=== PATIENT | female | born 1960 | race Caucasian/White ===

== ENCOUNTER 2024-08-19 14:38 | Emergency (ER) | payer MEDICAID, SELFPAY ==
[2024-08-19] VITALS (24 sets, daily range): BP systolic 100–174; BP diastolic 11–154; PULSE 57–92; RESP 12–25; TEMP 36.8; O2SAT 99–100
--- NOTE | 2024-08-19 14:30 | RT.EKG_ITS ---
APPROVED REPORT Exam: Resting ECG Reason for Exam: dialysis pt Patient Location: E HR:63 bpm ECG Measurements Heart Rate 63 AXIS IL 165 P 41 QRSd 79 QRS 20 QT 485 T 67 QTc 499 Conclusion Sinus rhythm, rate 63 Borderline QTc prolongation No STEMI Q waves lead III, V1/V2, T wave inversion aVL, no priors available for comparison
--- NOTE | 2024-08-19 14:51 | W.ED.GENAD ---
Discharge Plan Discharge Details Chief Complaint: Abd Prob Primary Care Provider: Wilber Miles ED Provider: Lindsey Morris Home Meds and New Rx's Prescriptions: No Action lactulose 10 gram/15 mL solution 15 ml PO DAILY ondansetron 4 mg tablet,disintegrating 4 mg PO DAILY Rx Instructions: Give 1 tab prior to dialysis on Thu/ Thu/ Thu mupirocin 2 % ointment 1 applic topical BID fluoxetine 20 mg capsule 80 mg PO DAILY metoprolol succinate 25 mg tablet extended release 24 hr 25 mg PO DAILY insulin aspart U-100 [Novolog U-100 Insulin aspart] 100 unit/mL solution 1 sliding scale dose subcut TID midodrine 5 mg tablet 5 mg PO ONCE Rx Instructions: administer 15-30 minutes before start of dialysis on Thu/ Thu/ Thu cyanocobalamin (vitamin B-12) [Vitamin B-12] 1,000 mcg tablet 1,000 mcg PO DAILY buspirone 5 mg tablet 5 mg PO BID pantoprazole [Protonix] 40 mg tablet,delayed release (DR/EC) 40 mg PO DAILY aspirin 81 mg tablet,chewable 81 mg PO DAILY Eliquis 5 mg tablet 5 mg PO BID polyethylene glycol 3350 [Miralax] 17 gram/dose powder 17 g PO BID acetaminophen 500 mg capsule 1,000 mg PO TID sennosides-docusate sodium [Senna Plus] 8.6-50 mg tablet 1 tab-cap PO BID trazodone 50 mg tablet 25 mg PO DAILY atorvastatin [Lipitor] 80 mg tablet 80 mg PO QHS sevelamer carbonate 800 mg tablet 1,600 mg PO TID Rx Instructions: must administer with a meal/food melatonin 3 mg tablet 3 mg PO QHS HPI General Mode of arrival: EMS. Date/Time Provider Initiated Documentation: 08/19/24 14:40. Limitations to Documentation: no limitations. Information obtained by: patient, EMS and old records reviewed. HPI Narrative: This is a 63-year-old female patient brought in by EMS from her care facility, with a report of nausea, vomiting, and abdominal pain. She reports that she has felt unwell all week, skip to Thursday and Thursday dialysis due to her feeling poorly. She did get normal dialysis on Thursday. She states that she is currently experiencing 7 out of 10 pain, has been able to maintain some oral intake but has a decreased appetite. History of cholecystectomy. She also has a history of endometrial cancer and noted that her vaginal bleeding has worsened over the last 2 weeks. She reports that she does make a small amount of urine, has not experienced any decreased urine output or dysuria. Took Tylenol and Zofran prior to arrival to good effect on her symptoms. Related Data Home Medications ?Medication ?Instructions ?Recorded ?Confirmed acetaminophen 500 mg capsule 1,000 mg PO TID 08/19/24 08/19/24 apixaban 5 mg tablet (Eliquis) 5 mg PO BID 08/19/24 08/19/24 aspirin 81 mg chewable tablet 81 mg PO DAILY 08/19/24 08/19/24 atorvastatin 80 mg tablet (Lipitor) 80 mg PO QHS 08/19/24 08/19/24 buspirone 5 mg tablet 5 mg PO BID 08/19/24 08/19/24 cyanocobalamin (vitamin B-12) 1,000 mcg PO DAILY 08/19/24 08/19/24 1,000 mcg tablet (Vitamin B-12) fluoxetine 20 mg capsule 80 mg PO DAILY 08/19/24 08/19/24 insulin aspart U-100 100 unit/mL 1 sliding scale dose subcut TID 08/19/24 08/19/24 subcutaneous solution (Novolog U-100 Insulin aspart) lactulose 10 gram/15 mL oral 15 ml PO DAILY 08/19/24 08/19/24 solution melatonin 3 mg tablet 3 mg PO QHS 08/19/24 08/19/24 metoprolol succinate 25 mg 25 mg PO DAILY 08/19/24 08/19/24 tablet,extended release 24 hr midodrine 5 mg tablet 5 mg PO ONCE 08/19/24 08/19/24 mupirocin 2 % topical ointment 1 applic topical BID 08/19/24 08/19/24 ondansetron 4 mg disintegrating 4 mg PO DAILY 08/19/24 08/19/24 tablet pantoprazole 40 mg tablet,delayed 40 mg PO DAILY 08/19/24 08/19/24 release (Protonix) polyethylene glycol 3350 17 17 g PO BID 08/19/24 08/19/24 gram/dose oral powder (Miralax) sennosides 8.6 mg-docusate sodium 1 tab-cap PO BID 08/19/24 08/19/24 50 mg tablet (Senna Plus) sevelamer carbonate 800 mg tablet 1,600 mg PO TID 08/19/24 08/19/24 trazodone 50 mg tablet 25 mg PO DAILY 08/19/24 08/19/24 Allergies Allergy/AdvReac Type Severity Reaction Status Date / Time cefazolin Allergy Unknown Unknown Verified 08/19/24 14:59 ceftriaxone Allergy Unknown Unknown Verified 08/19/24 14:59 codeine Allergy Unknown Unknown Verified 08/19/24 14:59 Fish Containing Products Allergy Unknown Unknown Verified 08/19/24 14:59 gabapentin Allergy Unknown Unknown Verified 08/19/24 14:59 piperacillin (From Zosyn) Allergy Unknown Unknown Verified 08/19/24 14:59 tazobactam (From Zosyn) Allergy Unknown Unknown Verified 08/19/24 14:59 General Stated Complaint: Abd Prob SELENA: 3 Exam Narrative Exam Narrative: Gen: Awake and alert, in no apparent distress HEENT: Non-icteric sclera Neck: Supple Lungs: No apparent respiratory distress, normal respiratory effort, lung sounds clear and equal bilaterally CV: Appears well perfused, heart with regular rate and rhythm, strong distal pulses Abdomen: Non-distended, soft, tender to palpation throughout the abdomen without rigidity, rebound, or guarding MSK: Status post left AKA, other extremities atraumatic Skin: Visualized skin without rashes, cyanosis. Neuro: No obvious focal deficits or facial asymmetry. Speaks in full, clear sentences. Psych: Appropriate for situation. Course Vital Signs Vital signs: Vital Signs Temperature 36.8 C 08/19/24 14:44 Pulse 65 08/19/24 14:44 Respiratory Rate 14 08/19/24 14:44 Blood Pressure 104/84 08/19/24 14:44 Pulse Oximetry 99 08/19/24 14:44 Temperature 36.8 C 08/19/24 14:44 Temperature Source Oral 08/19/24 14:44 Pulse 65 08/19/24 14:44 Respiratory Rate 14 08/19/24 14:44 Blood Pressure 104/84 08/19/24 14:44 Blood Pressure Position Sitting 08/19/24 14:44 Pulse Oximetry 99 08/19/24 14:44 Oxygen Delivery Method Room Air 08/19/24 14:44 Oxygen Flow Rate 0 08/19/24 14:44 Pain Level 7 08/19/24 14:44 Procedure EJ/Peripheral IV/Phlebotomy Date of Procedure: 08/19/24 Time of Procedure: 16:36 Indication: Nursing/tech could not get IV and Difficult IV access Skin Cleansed in Sterile Fashion: Yes Laterality: Left Insertion Site: Basilic Size & Type: 20 ga. Number ofAttempts(See previous attempts in note section): 1 Ultrasound: Used/Image Saved Estimated Blood Loss: minimal Reason for Blood Draw by Provider: RN/lab unable Obtained Bloods via: peripheral vein stick Procedure Tolerated: Other (After labs were drawn, when preparing to dress the line, we will noted that the line stopped drawing, and would not flush, concerning for extravasation/blown vein. The catheter was removed and the site dressed.) Procedure Outcome: Unsuccessful (Successfully obtained laboratory studies, unsuccessful peripheral access) Medical Decision Making This is a 63-year-old female patient presenting for evaluation of 5 days of nausea, decreased stool output/constipation, and abdominal pain. My differential includes, but is not limited to, gastritis/PUD, gastroenteritis, pancreatitis, cholecystitis and gallbladder pathology, hepatitis, appendicitis, diverticulitis, small bowel obstruction. Considered urinary pathology including UTI, nephrolithiasis. Considered mesenteric ischemia, aortic pathology, though this is less concerning based on the patient's history and physical exam. Considered sequelae of known endometrial cancer including anemia, uterine abnormalities. Considered metabolic electrolyte derangements, including hyperkalemia in the setting of her missed dialysis. Considered fluid overload. We obtained and I reviewed an EKG, which shows a sinus rhythm without peaked T waves, excessive bradycardia or QRS prolongation. Will obtain laboratory studies to include CBC, CMP, magnesium, lactate, troponin, BNP, and lipase. I will obtain a Noncon CT abdomen. -I reviewed the patient's CT, which shows evidence of constipation but no bowel obstruction or other acute abnormality to explain the patient's symptoms. I reviewed her laboratory studies, no leukocytosis, anemia noted to 8.6, no associated thrombocytopenia. Lactate is low at 1.4, chemistry panel is most notable for potassium of 5.9, with no hemolysis. BUN and creatinine ratio elevated consistent with her end-stage renal disease, though unfortunately no prior labs are available for comparison. She has no evidence of liver dysfunction, troponin is low and without interval increase on 1 hour delta recheck. Her BNP is quite elevated to 19,000, lipase is low. Unfortunately, this patient had significantly difficult IV access, with multiple failed attempts. She had 2 ultrasound IV lines placed, both of which unfortunately blew after laboratory studies were drawn. I do feel that this patient warrants treatment for her hyperkalemia, though I am reassured by the lack of EKG changes. She likely has some baseline hyperkalemia given her end-stage renal disease. I will provide her with oral medications to include Lokelma and Lasix. She does make a small amount of urine. Unfortunately [facility] reports that they are at capacity, and I feel that this patient warrants transfer as she will require dialysis tomorrow. I reached out to [facility], Dr. Powell has graciously accepted this patient for admission to [facility]. We had a shared decision-making conversation regarding her plan of treatment, she does not feel that this patient warrants central access at this time, and feels that her hyperkalemia does not need to be managed more aggressively than we have already done. The patient will be transferred at the market master level for cardiac monitoring, remained hemodynamically appropriate while under my care, left our facility without incident. Lindsey Morris MD Critical Care Time Critical Care Time Critical Care Time: Yes Total Critical Care Time: 40 Attestation: Upon my evaluation, this patient had a high probability of imminent or life-threatening deterioration due to hyperkalemia, which required my direct attention, intervention, and personal management. I have personally provided 40 minutes of critical care time exclusive of time spent on separately billable procedures. Time includes review of laboratory data, radiology results, discussion with consultants, and monitoring for potential decompensation. Interventions were performed as documented above. iLndsey Morris MD [facility] Social History Smoking risk assessment performed?: No
[2024-08-19 17:08] LABS: Lactate 1.4 mmol/L (<or=2.0)
[2024-08-19 17:10] LABS: Abs Immature Grans 0.03 10^3/uL (0.0-0.06); Absolute Eosinophil Count 0.14 10^3/uL (0.0-0.7); Absolute Lymphocyte Count 0.81 10^3/uL (1.2-3.4); Absolute Monocyte Count 0.54 10^3/uL (0.1-0.8); Absolute Neutrophil Count 6.48 10^3/uL (1.2-6.7); Eosinophils % 1.8 %; HCT 30.6 % (36.0-46.0); HGB 8.6 g/dL (11.2-15.7); Immature Grans % 0.4 %; Lymphocytes % 10.1 %; MCH 27.7 pg (27.0-33.0); MCHC 28.1 % (32.0-36.0); MCV 99 fL (80-95); MPV 11.3 fL (8.0-11.0); Monocytes % 6.8 %; Neutrophils % 80.9 %; Platelet Count 139 10^3/uL (130-400); RDW 15.1 % (11.7-14.6); RDW-SD 54.1 fL
--- NOTE | 2024-08-19 17:27 | DI.CT_ITS ---
Exam(s) CT ABDOMEN PELVIS WO EXAM: CT ABDOMEN PELVIS WO CLINICAL HISTORY: nausea, constipation, eval bowel obstruction.. TECHNIQUE: Imaging Protocol: Axial computed tomography images with coronal and sagittal reformatted images were created and reviewed. COMPARISON: No exams were available for comparison FINDINGS: ABDOMEN: Lung Bases: Coronary artery calcifications are present. Liver: Normal density. No measurable mass. Gallbladder and biliary tract: The gallbladder is not visualized. There is no biliary ductal dilatation. Pancreas: Normal density, no abnormal calcifications or inflammatory process. Spleen: Normal. Kidneys: Normal size, contour and axis.No radiodense stones or obstructive uropathy. No masses seen. Adrenal glands: No mass is seen. Lymph nodes: Within normal limits. Abdominal Aorta: Abdominal portion non-dilated. There is marked atherosclerotic calcification of the abdominal vasculature including the abdominal aorta. PELVIS: Bladder:Symmetric distention, no gross wall thickening. Bowel: No obstruction or bowel wall thickening. There is stool throughout the colon suggesting constipation. There is no evidence of appendicitis. Peritoneal cavity: No ascites, collection or mesenteric inflammatory response. No free air. Reproductive organs: There is an IUD within the uterus. Bones: Within normal limits. Soft Tissues: There is fatty atrophy seen in the pelvic muscles, particularly the gluteal muscles. IMPRESSION: 1. No acute abdominal or pelvic process. 2. Constipation. 3. No evidence of bowel obstruction. 4. Extensive atherosclerotic disease. RADIATION DOSE DELIVERED: 1,419.5mGy.cm Total DLP DATA REPOSITORY: All CT scans at this facility are submitted to the National Radiology Data Registry (NRDR) Dose Index Registry (DIR) with the [employer] ([employer]). RADIATION OPTIMIZATION: All CT scans at this facility use at least one of these dose optimization techniques: automated exposure control; mA and/or kV adjustment per patient size (includes targeted exams where dose is matched to clinical indication); or iterative reconstruction.
[2024-08-19 17:36] LABS: Troponin I 9 ng/L (<or=51)
[2024-08-19 17:51] LABS: ALT 22 U/L (14-59); AST 21 U/L (15-37); Albumin 2.3 g/dL (3.4-5.0); Alkaline Phosphatase 146 U/L (46-116); Anion Gap 5.4 mmol/L (3-11); BUN 41 mg/dL (7-18); Bilirubin, Total 0.2 mg/dL (0.2-1.0); CO2 31.6 mmol/L (21.0-32.0); Calcium 8.5 mg/dL (8.5-10.1); Chloride 104 mmol/L (98-107); Estimated GFR 8.31 (mL/min/1.73m2); Glucose 192 mg/dL (74-106); Lipase 28 U/L (<78); Magnesium 2.2 mg/dL (1.8-2.4); NT-proBNP 19451 pg/mL (<300); Potassium 5.9 mmol/L (3.5-5.1); Sodium 141 mmol/L (136-145); Total Protein 5.9 g/dL (6.4-8.2)
[2024-08-19 17:52] LABS: CREATININE 5.4 mg/dL (0.55-1.02)
[2024-08-19] MEDS: Sodium Zirconium Cyclosilicate 10 GM PKT PO (18:51)
[2024-08-19] MEDS: Furosemide 80 MG TAB PO (19:06)
--- NOTE | 2024-08-20 02:07 | NUR.NOTE ---
Patient had an uneventful transport to [facility]. Patient vitals remained stable, and patient was interactive throughout the transport
== END 2024-08-19 22:25 | disposition short-term general hospital (02) ==
LOC: ER 19:58
PROVIDERS: Emergency Provider Emergency Medicine; PCP Internal Medicine
DX: R11.2 Nausea with vomiting, unspecified (principal); N93.9 Abnormal uterine and vaginal bleeding, unspecified; E87.5 Hyperkalemia; Z79.82 Long term (current) use of aspirin; Z79.01 Long term (current) use of anticoagulants; Z97.5 Presence of (intrauterine) contraceptive device; E11.22 Type 2 diabetes mellitus with diabetic chronic kidney disease; I12.0 Hypertensive chronic kidney disease with stage 5 chronic kidney disease or end stage renal disease; N18.6 End stage renal disease; Z99.2 Dependence on renal dialysis
CPT/HCPCS: 36569; 76942; 80053; 83690; 86850; 86900; 86901; 93005; 99284; 74176; 83605; 83735; 83880; 84132; 84484; 85025; 85610; 93010

== ENCOUNTER 2024-08-31 02:55 | Outpatient (CLI) | payer MEDICAID, SELFPAY ==
--- NOTE | 2024-08-31 07:00 | DI.US_ITS ---
Exam(s) US PELVIS TRANSVAGINAL EXAM: US PELVIS TRANSVAGINAL CLINICAL HISTORY: check IUD and stripe,[id number],encounter for routine check of iud TECHNIQUE: Transabdominal and transvaginal imaging was performed using standard protocol. COMPARISON: CT CT ABDOMEN PELVIS WO from 08/19/2024 FINDINGS: The transabdominal portion of the exam is limited by suboptimal bladder distention. The exam is limited by patient body habitus. Transvaginal images are also limited by stool/gas in the rectum. UTERUS: Anteverted. 9.4 x 3.6 x 5.6 cm Endometrium: 10 mm IUD appears appropriately positioned within the endometrium. Myometrium: Unremarkable. Cervix: Unremarkable. The ovaries were not able to be visualized. CUL-DE-SAC: Free fluid: None. IMPRESSION: 1. The IUD appears to be in appropriate position within the endometrial cavity. The endometrium appears thickened at 10 millimeters. 2. The ovaries were not visualized. DATA REPOSITORY:
== END 2024-08-31 03:15 ==
LOC: DI 02:56
PROVIDERS: PCP Internal Medicine; Visit Provider Obstetrics & Gynecology
DX: Z30.431 Encounter for routine checking of intrauterine contraceptive device (principal)
CPT/HCPCS: 76830; 76856

== ENCOUNTER 2024-08-31 17:19 | Emergency (ER) | payer MEDICAID, SELFPAY ==
[2024-08-31] VITALS (60 sets, daily range): BP systolic 37–144; BP diastolic 10–130; PULSE 66–76; RESP 9–25; TEMP 36.9–37.3; O2SAT 77–100
--- NOTE | 2024-08-31 17:22 | W.ED.GENAD ---
Discharge Plan Disposition Patient Disposition: Transfer-Acute Inpatient Care Specific Acute Inpt Facility: [facility] Condition: Serious Discharge Details Clinical Impression: Hypotension, Shock, Vaginal bleeding, GI bleeding Primary Care Provider: Wilber Miles ED Provider: Thomas Santiago Home Meds and New Rx's Prescriptions: No Action lactulose 10 gram/15 mL solution 15 ml PO DAILY ondansetron 4 mg tablet,disintegrating 4 mg PO DAILY Rx Instructions: Give 1 tab prior to dialysis on Thu/ Thu/ Thu mupirocin 2 % ointment 1 applic topical BID fluoxetine 20 mg capsule 80 mg PO DAILY metoprolol succinate 25 mg tablet extended release 24 hr 25 mg PO DAILY insulin aspart U-100 [Novolog U-100 Insulin aspart] 100 unit/mL solution 1 sliding scale dose subcut TID midodrine 5 mg tablet 5 mg PO ONCE Rx Instructions: administer 15-30 minutes before start of dialysis on Thu/ Thu/ Thu cyanocobalamin (vitamin B-12) [Vitamin B-12] 1,000 mcg tablet 1,000 mcg PO DAILY buspirone 5 mg tablet 5 mg PO BID pantoprazole [Protonix] 40 mg tablet,delayed release (DR/EC) 40 mg PO DAILY aspirin 81 mg tablet,chewable 81 mg PO DAILY Eliquis 5 mg tablet 5 mg PO BID polyethylene glycol 3350 [Miralax] 17 gram/dose powder 17 g PO BID acetaminophen 500 mg capsule 1,000 mg PO TID sennosides-docusate sodium [Senna Plus] 8.6-50 mg tablet 1 tab-cap PO BID trazodone 50 mg tablet 25 mg PO DAILY atorvastatin [Lipitor] 80 mg tablet 80 mg PO QHS sevelamer carbonate 800 mg tablet 1,600 mg PO TID Rx Instructions: must administer with a meal/food melatonin 3 mg tablet 3 mg PO QHS HPI General Date/Time Provider Initiated Documentation: 08/31/24 17:22. HPI Narrative: 63 year-old female presents to ED today by EMS with a chief complaint of low hemoglobin reading while at dialysis today, 6.2, with onset insidiously- her HgB was 8.6 on 08/19/24, patient has remote history of GI bleed and is on Eliquis. Gets dialysis through a tunnel catheter. Quality described as feels weak, no radiation to chest pain, endorses lower abdominal pain diffusely, history of t2DM with L BKA amputation, does make urine still but usually not on days she gets dialysis. Severity is described as moderate for weakness. Palliating factors include nothing specific. Provoking factors include nothing specific. Events leading up to the incident/Associated Symptoms: Patient endorse some nausea, and questions if it looked like coffee grounds yesterday but doesn't look at her stools, endorses some uterine bleeding as well from her known mass. Patient is at the [facility] in [place]. Patient is anticoagulated on Eliquis. Related Data Home Medications ?Medication ?Instructions ?Recorded ?Confirmed acetaminophen 500 mg capsule 1,000 mg PO TID 08/19/24 08/31/24 apixaban 5 mg tablet (Eliquis) 5 mg PO BID 08/19/24 08/31/24 aspirin 81 mg chewable tablet 81 mg PO DAILY 08/19/24 08/31/24 atorvastatin 80 mg tablet (Lipitor) 80 mg PO QHS 08/19/24 08/31/24 buspirone 5 mg tablet 5 mg PO BID 08/19/24 08/31/24 cyanocobalamin (vitamin B-12) 1,000 mcg PO DAILY 08/19/24 08/31/24 1,000 mcg tablet (Vitamin B-12) fluoxetine 20 mg capsule 80 mg PO DAILY 08/19/24 08/31/24 insulin aspart U-100 100 unit/mL 1 sliding scale dose subcut TID 08/19/24 08/31/24 subcutaneous solution (Novolog U-100 Insulin aspart) lactulose 10 gram/15 mL oral 15 ml PO DAILY 08/19/24 08/31/24 solution melatonin 3 mg tablet 3 mg PO QHS 08/19/24 08/31/24 metoprolol succinate 25 mg 25 mg PO DAILY 08/19/24 08/31/24 tablet,extended release 24 hr midodrine 5 mg tablet 5 mg PO ONCE 08/19/24 08/31/24 mupirocin 2 % topical ointment 1 applic topical BID 08/19/24 08/31/24 ondansetron 4 mg disintegrating 4 mg PO DAILY 08/19/24 08/31/24 tablet pantoprazole 40 mg tablet,delayed 40 mg PO DAILY 08/19/24 08/31/24 release (Protonix) polyethylene glycol 3350 17 17 g PO BID 08/19/24 08/31/24 gram/dose oral powder (Miralax) sennosides 8.6 mg-docusate sodium 1 tab-cap PO BID 08/19/24 08/31/24 50 mg tablet (Senna Plus) sevelamer carbonate 800 mg tablet 1,600 mg PO TID 08/19/24 08/31/24 trazodone 50 mg tablet 25 mg PO DAILY 08/19/24 08/31/24 Allergies Allergy/AdvReac Type Severity Reaction Status Date / Time cefazolin Allergy Unknown Unknown Verified 08/19/24 14:59 ceftriaxone Allergy Unknown Unknown Verified 08/19/24 14:59 codeine Allergy Unknown Unknown Verified 08/19/24 14:59 Fish Containing Products Allergy Unknown Unknown Verified 08/19/24 14:59 gabapentin Allergy Unknown Unknown Verified 08/19/24 14:59 piperacillin (From Zosyn) Allergy Unknown Unknown Verified 08/19/24 14:59 tazobactam (From Zosyn) Allergy Unknown Unknown Verified 08/19/24 14:59 General Stated Complaint: GenMedical SELENA: 3 Review of Systems All systems reviewed & are unremarkable except as noted in HPI and below Exam Narrative Exam Narrative: GENERAL APPEARANCE: Obesity, toxic, awake and alert, atraumatic, significant acute distress, nodding off during initial questioning SKIN: Warm, pale, dry, intact, without rashes/lesions/ulcerations. HEAD: Normocephalic, atraumatic, normal hair distribution for gender/age. EYES: Normal conjunctiva, no exudates on lids/lashes. ENT: Nares patent, no circumoral cyanosis, no facial swelling NECK: Supple, trachea midline, painless cervical ROM. LUNGS/CHEST: Lungs CTA bilaterally- no rhonchi/rales/wheezes diffusely, non-labored respirations, normal A/P diameter, symmetrical expansion, no chest wall deformity HEART (CV/PV): Regular rate and rhythm without murmur, no peripheral edema, no JVD. ABDOMEN: Soft, non-distended, no guarding, diffuse lower abdominal tenderness without rebound tenderness. Pelvic/NEVAEH: clots present at labia/vaginal opening, no phoebe blood, stool present without blood MSK: L LE BKA, moving all other extremities without weakness, no cyanosis, spine midline without tenderness, normal curvature. NEURO: Mental Status AAOx4 - alert to person, place, time, events No facial droop, no forehead involvement. Motor: No focal weakness Sensory: sensation intact to light touch globally. Gait NT. PSYCH: euthymic, cooperative, pleasant, appropriate speech Course Vital Signs Vital signs: Vital Signs Temperature 36.9 C 08/31/24 17:15 Pulse 71 08/31/24 17:15 Respiratory Rate 17 08/31/24 17:15 Pulse Oximetry 99 08/31/24 17:15 Temperature 36.9 C 08/31/24 17:15 Temperature Source Oral 08/31/24 17:15 Pulse 71 08/31/24 17:15 Respiratory Rate 17 08/31/24 17:15 Blood Pressure Position Supine 08/31/24 17:15 Pulse Oximetry 99 08/31/24 17:15 Oxygen Delivery Method Room Air 08/31/24 17:15 Oxygen Flow Rate 0 08/31/24 17:15 Medical Decision Making This dictation utilizes [id number] dictation software and may contain unedited grammatical errors. 63 year-old female presents to ED today by EMS with a chief complaint of low hemoglobin reading while at dialysis today, 6.2, with onset insidiously- her HgB was 8.6 on 08/19/24, patient has remote history of GI bleed and is on Eliquis. Gets dialysis through a tunnel catheter. Quality described as feels weak, no radiation to chest pain, endorses lower abdominal pain diffusely, history of t2DM with L BKA amputation, does make urine still but usually not on days she gets dialysis. Severity is described as moderate for weakness. Palliating factors include nothing specific. Provoking factors include nothing specific. Events leading up to the incident/Associated Symptoms: Patient endorse some nausea, and questions if it looked like coffee grounds yesterday but doesn't look at her stools, but also having some uterine bleeding as well. Patient is at the [facility] in [place]. Patients' medical history: Morbid obesity, T2DM, end-stage renal failure, atrial fibrillation, hypertension, endocrine cancer with vaginal bleeding. Family and social history: Noncontributory. Pertinent exam findings / vital signs include diffuse lower abdominal tenderness, some moderate amount of blood in the depends from the vagina which has been chronic, stool without blood present rectum, hypotensive, diffuse lower abdominal tenderness. Differential / pathologies of concern include vaginal bleeding, GI bleeding, hypotension, renal failure. Diagnostic studies of: - CBC, CMP, PT/INR, PTT, lactate, magnesium, troponin, BNP, lipase, type and screen. - CBC shows hemoglobin of 7.0, elevated white blood cells at 12.44, no left shift - PT/INR within normal limits - PTT elevated at 36 point - Magnesium within normal limits - AST/ALT low, alk phos 157 - Troponin negative - BNP 25,000 likely renal source - Lipase negative - Blood type A+ with antibody screen negative Was awaiting peripheral IV for imaging, but with multiple infiltrations it was not performed prior to patients hypotension and subsequent transfer, reviewed imaging from 08/19 Interventions of: -multiple peripheral IV attempts have infiltrated, this patient has had multiple attempts in the past with transfer without IV access to tertiary care facility where she reportedly needed access via anesthesia consult - consulting with Nephrology about use of her tunnel cath, calling anesthesia on-call. Patient will need transfusion, and transfer as we do not have dialysis here- CT considered but no bright red blood per rectum, low-yield study. -Consulted with [facility] Nephrology Dr. Eason @ 1943 - states using tunnel cath isn't ideal but with patients difficult history of access- OK to use for resuscitation with good sterile technique and line dressing, reinstill with heparin etc. Our ENVIRONMENTAL LAWYER was called in and there was no location reasonable for midline on ultrasound. - [facility] states overcapacity today, [facility] paged, patient did have some hypotension during this time, paged and spoke to MICU attending at 2047- recommends blood in tunnel cath, recommends ED to ED transfer, Lucille Soto - Spoke to Dr. Ayala in [facility] ED, accepts for transfer, considering flighting her over there- patient is 268 lbs., [ ] ED Course/Assessment/Plan: 63-year-old female comes in by EMS from the [facility], had dialysis today with outpatient labs drawn with a hemoglobin of 6.2, hypotensive on arrival 81/53 but the patient is obese and the cuff was forearm, manual reading 92/68 -some transient hypotension below this the patient has had maintained good color and alertness without requiring any oxygenation or other support, patient has history of extremely difficult stick, we had to peripheral IVs infiltrate, ENVIRONMENTAL LAWYER was called in, could not place midline there was nothing superficial enough to place a line. I did speak to [facility] nephrology on the phone and they did give permission for resuscitative use of the patient's tunnel cath we started 1 unit of packed red blood cells by sterile technique in the tunnel cath, pending transfer. Patient is having chronic bleeding from her known uterine mass, question some GI bleeding too without suspicion for acute hemorrhage. Disposition of Hypotension, Shock, Vaginal Bleeding, GI Bleeding. Patient verbalized understanding of the plan and return to ED criteria and engaged in shared decision making. Medical Records Medical records reviewed: Yes I reviewed the patient's medical records. Lab Data Lab results reviewed: Yes I reviewed the patient's lab results. Labs: Laboratory Tests Range/Units 08/31/24 08/31/24 08/31/24 18:21 18:24 19:52 WBC (4.4-10.8) 10^3/uL 12.44 H RBC (3.93-5.22) 10^6/uL 2.48 L Hgb (11.2-15.7) g/dL 7.0 L* Hct (36.0-46.0) % 24.5 L MCV (80-95) fL 99 H MCH (27.0-33.0) pg 28.2 MCHC (32.0-36.0) % 28.6 L RDW (11.7-14.6) % 16.4 H Plt Count (130-400) 10^3/uL 188 MPV (8.0-11.0) fL 10.4 Immature Gran % % 0.4 Neutrophils % % 85.8 Lymphocytes % % 5.8 Monocytes % % 7.2 Eosinophils % % 0.6 Basophils % % 0.2 Nucleated RBC % (0.0-0.3) % 0.0 Absolute Neutrophils (1.2-6.7) 10^3/uL 10.67 H Absolute Lymphocytes (1.2-3.4) 10^3/uL 0.72 L Absolute Monocytes (0.1-0.8) 10^3/uL 0.90 H Absolute Eosinophils (0.0-0.7) 10^3/uL 0.07 Absolute Basophils (0.0-0.2) 10^3/uL 0.02 PT (9.1-11.1) sec 10.4 INR (0.9-1.1) 1.0 APTT (20.6-30.2) sec 36.0 H VBG Lactate (<or=2.0) mmol/L 1.6 Sodium (136-145) mmol/L 142 Potassium (3.5-5.1) mmol/L 4.2 Chloride (98-107) mmol/L 100 Carbon Dioxide (21.0-32.0) mmol/L 34.3 H Anion Gap (3-11) mmol/L 7.7 BUN (7-18) mg/dL 11 Creatinine (0.55-1.02) mg/dL 1.8 H Est GFR (CKD-EPI 2020) (mL/min/1.73m2) 31.07 Glucose (74-106) mg/dL 110 H Calcium (8.5-10.1) mg/dL 8.9 Magnesium (1.8-2.4) mg/dL 1.8 Total Bilirubin (0.2-1.0) mg/dL 0.4 AST (15-37) U/L 11 L ALT (14-59) U/L 13 L Alkaline Phosphatase (46-116) U/L 157 H Troponin I (<or=51) ng/L 9 NT-Pro-B Natriuret Pep (<300) pg/mL 69332 H Total Protein (6.4-8.2) g/dL 7.1 Albumin (3.4-5.0) g/dL 2.4 L Lipase (<78) U/L 23 ABO/Rh A Positive Antibody Screen NEGATIVE Crossmatch See Detail Critical Care Time Critical Care Time Critical Care Time: Yes Total Critical Care Time: 60 Attestation: Upon my evaluation, this patient had a high probability of imminent or life-threatening deterioration due to hypotension/shock, which required my direct attention, intervention, and personal management. I have personally provided [ ] minutes of critical care time exclusive of time spent on separately billable procedures. Time includes review of laboratory data, radiology results, discussion with consultants, and monitoring for potential decompensation. Interventions were performed as documented above, including monitoring of critical vital signs, ordering critical medications from bedside, and re-assessing effectiveness, repeating critical exam findings, and reviewing patients' chart. PFSH All Active Problems (Updated 08/31/24 @ 22:01 by GAVIN Hall) GI bleeding (Chronic) Vaginal bleeding (Acute) Shock (Acute) Hypotension (Acute) Hx of left BKA (Acute) Class III morbid obesity with body mass index (BMI) of 40.0 to 49.9 (Acute) Type 2 diabetes mellitus (Acute) End stage renal failure on dialysis (Acute) Metabolic encephalopathy (Acute) Bacteremia (Acute) Depression (Chronic) A-fib (Chronic) Hypertension (Chronic) Endocrine cancer (Acute) with an IUD IUD check up (Acute) Social History Smoking risk assessment performed?: No
[2024-08-31] MEDS: Normal Saline 500 ML IV (18:37)
[2024-08-31 18:56] LABS: ALT 13 U/L (14-59); AST 11 U/L (15-37); Albumin 2.4 g/dL (3.4-5.0); Alkaline Phosphatase 157 U/L (46-116); Anion Gap 7.7 mmol/L (3-11); BUN 11 mg/dL (7-18); Bilirubin, Total 0.4 mg/dL (0.2-1.0); CO2 34.3 mmol/L (21.0-32.0); Calcium 8.9 mg/dL (8.5-10.1); Chloride 100 mmol/L (98-107); Estimated GFR 31.07 (mL/min/1.73m2); Glucose 110 mg/dL (74-106); Lipase 23 U/L (<78); Magnesium 1.8 mg/dL (1.8-2.4); NT-proBNP 25425 pg/mL (<300); Potassium 4.2 mmol/L (3.5-5.1); Sodium 142 mmol/L (136-145); Total Protein 7.1 g/dL (6.4-8.2); Troponin I 9 ng/L (<or=51)
[2024-08-31 18:57] LABS: INR 1.0 (0.9-1.1); PTT Activated 36.0 sec (20.6-30.2); Prothrombin Time 10.4 sec (9.1-11.1)
[2024-08-31 19:55] LABS: Abs Immature Grans 0.05 10^3/uL (0.0-0.06); HCT 24.5 % (36.0-46.0); Immature Grans % 0.4 %; MCH 28.2 pg (27.0-33.0); MCHC 28.6 % (32.0-36.0); MCV 99 fL (80-95); MPV 10.4 fL (8.0-11.0); Platelet Count 188 10^3/uL (130-400); RBC 2.48 10^6/uL (3.93-5.22); RDW 16.4 % (11.7-14.6); RDW-SD 59.5 fL; WBC 12.44 10^3/uL (4.4-10.8)
[2024-08-31 20:01] LABS: HGB 7.0 g/dL (11.2-15.7)
[2024-08-31 22:32] LABS: COVID-19 PCR Negative (Negative); RSV PCR Negative (Negative)
--- NOTE | 2024-09-01 14:07 | NUR.NOTE ---
Accessed Pt chart to cancel the CT that was ordered by the Provider.
== END 2024-08-31 22:39 | disposition short-term general hospital (02) ==
PROVIDERS: Emergency Provider Physician Assistant; PCP Internal Medicine
DX: K92.2 Gastrointestinal hemorrhage, unspecified (principal); N93.9 Abnormal uterine and vaginal bleeding, unspecified; N85.8 Other specified noninflammatory disorders of uterus; I95.9 Hypotension, unspecified; R57.8 Other shock; E66.01 Morbid (severe) obesity due to excess calories; I48.91 Unspecified atrial fibrillation; E11.22 Type 2 diabetes mellitus with diabetic chronic kidney disease; I12.0 Hypertensive chronic kidney disease with stage 5 chronic kidney disease or end stage renal disease; N18.6 End stage renal disease; E03.9 Hypothyroidism, unspecified; Z68.42 Body mass index [BMI] 45.0-49.9, adult; Z99.2 Dependence on renal dialysis; Z89.512 Acquired absence of left leg below knee
CPT/HCPCS: 80053; 83690; 86850; 86900; 86901; 86920; 87637; 99285; 83605; 83735; 83880; 84484; 85025; 85610; 85730; P9016

== ENCOUNTER 2024-10-27 14:08 | Emergency (ER) | payer MEDICARE, MEDICAID, SELFPAY ==
[2024-10-27 14:13] VITALS: BP 93/66; PULSE 68; RESP 16; TEMP 36.4; O2SAT 97
--- NOTE | 2024-10-27 14:15 | DI.RAD_ITS ---
Exam(s) XR TIB/FIB RT EXAM: XR TIB/FIB RT CLINICAL HISTORY: trauma with hematoma. TECHNIQUE: 2D digital imaging was performed. COMPARISON: No exams were available for comparison FINDINGS: Four views No evidence of obvious fracture of the tibia and fibula. Vascular calcification noted throughout the calf and popliteal artery as well as within the tibioperoneal trunk. Osteopenia. No osseous lesions. No radiopaque foreign bodies. No evidence of obvious osteomyelitis. Degenerative changes are noted in the tibiotalar-ankle joint IMPRESSION: Findings as above but no obvious acute fractures in the tibia and fibula. DATA REPOSITORY: RADIATION DOSE DELIVERED:
--- NOTE | 2024-10-27 14:26 | W.ED.GENAD ---
Discharge Plan Disposition Patient Disposition: [facility]) Condition: Good Discharge Details Clinical Impression: Hematoma, Acute hyperkalemia Primary Care Provider: Wilber Miles ED Provider: Krzysztof Fernandez Home Meds and New Rx's Prescriptions: New clindamycin HCl [Cleocin HCl] 300 mg capsule 300 mg PO Q6H Qty: 28 0RF Continued lactulose 10 gram/15 mL solution 15 ml PO DAILY ondansetron 4 mg tablet,disintegrating 4 mg PO DAILY Rx Instructions: Give 1 tab prior to dialysis on Thu/ Thu/ Thu mupirocin 2 % ointment 1 applic topical BID fluoxetine 20 mg capsule 80 mg PO DAILY metoprolol succinate 25 mg tablet extended release 24 hr 25 mg PO DAILY insulin aspart U-100 [Novolog U-100 Insulin aspart] 100 unit/mL solution 1 sliding scale dose subcut TID midodrine 5 mg tablet 5 mg PO ONCE Rx Instructions: administer 15-30 minutes before start of dialysis on Thu/ Thu/ Thu cyanocobalamin (vitamin B-12) [Vitamin B-12] 1,000 mcg tablet 1,000 mcg PO DAILY buspirone 5 mg tablet 5 mg PO BID pantoprazole [Protonix] 40 mg tablet,delayed release (DR/EC) 40 mg PO DAILY aspirin 81 mg tablet,chewable 81 mg PO DAILY Eliquis 5 mg tablet 5 mg PO BID polyethylene glycol 3350 [Miralax] 17 gram/dose powder 17 g PO BID acetaminophen 500 mg capsule 1,000 mg PO TID trazodone 50 mg tablet 25 mg PO DAILY atorvastatin [Lipitor] 80 mg tablet 80 mg PO QHS sevelamer carbonate 800 mg tablet 1,600 mg PO TID Rx Instructions: must administer with a meal/food melatonin 3 mg tablet 3 mg PO QHS Acidophilus Tablet,Chewable 1 tab PO DAILY sennosides-docusate sodium [Senna Plus] 8.6-50 mg tablet 1 tab-cap PO BID Discharge Instructions Instructions: General Trauma, Hyperkalemia Additional Instructions: As discussed, the hematoma was opened up and partially evacuated given the overlying ulceration which had occurred. I would not recommend further incision and drainage given your history of lower extremity infections and risk factors for significant infections. The remainder of the blood should natuarlly reabsorb over time, however if you develop signs of infection such as fever, spreading rash, nausea, vomiting or increasing pain, please return to emergency department for further management. He will also be prescribed clindamycin, an antibiotic, to prevent infection. Please take this as prescribed. Your wound was loosely sutured together to allow for further drainage. I suspect it should stop bleeding within 24 to 48 hours. I would recommend suture removal within 10 to 14 days which can be performed at any healthcare facility such as an urgent care, primary care clinic or emergency department. Please follow-up with your primary care provider regarding your visit to the emergency department today. Be sure to discuss results of all test performed here today to include radiology, and laboratory testing as well as results for any pending cultures. Should your symptoms worsen, or if you develop new concerning symptoms, please return immediately emergency department for further evaluation. HPI General Date/Time Provider Initiated Documentation: 10/27/24 14:14. HPI Narrative: MDM/Narrative: Initial Assessment: 64-year-old female with right leg hematoma after Marcellus lift injury in early September. Hematoma now opening and oozing darker blood. Differential Diagnosis: - Hematoma: Likely due to blood thinners. Imaging needed to confirm no ongoing bleeding or bone injury. Pain medication provided. Possible drainage or surgical repair if complications. - Ulceration: Possible progression from hematoma due to tissue stress. Monitor for infection or worsening. ED Course: 27 October 2024: Proximal right trujillo with baseball-sized hematoma and ulceration oozing darker blood. DP pulses 2+ bilaterally. Pain medication provided. X-ray shows no acute fracture or dislocation or retained foreign body. Labs are notable for no leukocytosis, baseline hemoglobin, no other acute findings. Hematoma was incised and evacuated please see associated procedure note. Patient prophylaxis lead treated with clindamycin 900 mg IV, and will be [place] [facility] same prescription to prevent infection given her history of diabetes. Clinical Impression: - Hematoma - Ulceration Disposition: Discharge: Home. Monitor for worsening symptoms or infection. Return if condition deteriorates. Follow-Up: Referral to imaging for further evaluation. Monitor hematoma and ulceration. Patient Education: Discussed signs of infection and worsening symptoms. Advised to return if condition deteriorates. This document was created with assistance from [employer] The patient consented to its use. HPI: The patient is a 64-year-old female with a history of diabetes mellitus, presenting with a hematoma on the right leg below the knee. The injury occurred in early September 2024 when her leg was trapped under a mailbox during a Marcellus lift transfer. The hematoma has been present since the injury and is now exhibiting signs of dehiscence. The affected area is characterized by stiffness, tension, and tenderness. The patient has been immobile, unable to ambulate or get out of bed since the incident. She denies experiencing pyrexia, chills, nausea, or emesis. She requests analgesic medication. The patient is currently on anticoagulant therapy, though she is uncertain of the specific medication. She has a history of cellulitis in the same leg secondary to an infected hangnail on the toe and has undergone a total knee arthroplasty. The patient is receiving hemodialysis via a port, with sessions scheduled on Thursday, Thursday, and Thursday. Her last dialysis session was yesterday, and the next session is scheduled for tomorrow. PAST SURGICAL HISTORY: Total knee arthroplasty. ROS: Negative besides as mentioned above Exam: Vital signs: Reviewed. General Appearance: Alert and oriented. No acute distress. HEENT: NCAT, EOMI, not icteric. External ears normal. No rhinorrhea. Moist mucous membranes. Neck: Supple, full range of motion, no observable masses, No meningeal sign. Respiratory: No Respiratory distress. No tachypnea. Cardiovascular: DP pulses 2+ bilaterally. Gastrointestinal: Soft, nondistended, No rebound tenderness. Back: No midline tenderness to palpation or palpable step-offs of the C/T/L spine. Skin: Proximal right trujillo with baseball-sized hematoma with some fluctuance and ulceration oozing darker blood. Tender to touch. No erytehma. Neurological: Normal Gait, Grossly intact. Psychiatric: Appropriate for situation. Labs: Laboratory Tests Range/Units 10/27/24 15:02 WBC (4.4-10.8) 10^3/uL 6.01 RBC (3.93-5.22) 10^6/uL 3.65 L Hgb (11.2-15.7) g/dL 10.4 L Hct (36.0-46.0) % 36.0 MCV (80-95) fL 99 H MCH (27.0-33.0) pg 28.5 MCHC (32.0-36.0) % 28.9 L RDW (11.7-14.6) % 15.9 H Plt Count (130-400) 10^3/uL 109 L MPV (8.0-11.0) fL 12.1 H Immature Gran % % 0.3 Neutrophils % % 77.8 Lymphocytes % % 12.0 Monocytes % % 7.3 Eosinophils % % 2.3 Basophils % % 0.3 Nucleated RBC % (0.0-0.3) % 0.0 Absolute Neutrophils (1.2-6.7) 10^3/uL 4.67 Absolute Lymphocytes (1.2-3.4) 10^3/uL 0.72 L Absolute Monocytes (0.1-0.8) 10^3/uL 0.44 Absolute Eosinophils (0.0-0.7) 10^3/uL 0.14 Absolute Basophils (0.0-0.2) 10^3/uL 0.02 PT (9.1-11.1) sec 10.4 INR (0.9-1.1) 1.0 APTT (20.6-30.2) sec 28.4 VBG Lactate (<or=2.0) mmol/L 1.1 Sodium (136-145) mmol/L 140 Potassium (3.5-5.1) mmol/L 5.3 H Chloride (98-107) mmol/L 104 Carbon Dioxide (21.0-32.0) mmol/L 35.5 H Anion Gap (3-11) mmol/L 0.5 L BUN (7-18) mg/dL 17 Creatinine (0.55-1.02) mg/dL 3.0 H Est GFR (CKD-EPI 2020) (mL/min/1.73m2) 16.73 Glucose (74-106) mg/dL 169 H Calcium (8.5-10.1) mg/dL 8.8 Total Bilirubin (0.2-1.0) mg/dL 0.2 AST (15-37) U/L 16 ALT (14-59) U/L 17 Alkaline Phosphatase (46-116) U/L 188 H Creatine Kinase (26-192) U/L < 7 L Total Protein (6.4-8.2) g/dL 6.3 L Albumin (3.4-5.0) g/dL 2.5 L Radiology: Exam(s) XR TIB/FIB RT EXAM: XR TIB/FIB RT CLINICAL HISTORY: trauma with hematoma. TECHNIQUE: 2D digital imaging was performed. COMPARISON: No exams were available for comparison FINDINGS: Four views No evidence of obvious fracture of the tibia and fibula. Vascular calcification noted throughout the calf and popliteal artery as well as within the tibioperoneal trunk. Osteopenia. No osseous lesions. No radiopaque foreign bodies. No evidence of obvious osteomyelitis. Degenerative changes are noted in the tibiotalar-ankle joint IMPRESSION: Findings as above but no obvious acute fractures in the tibia and fibula. DATA REPOSITORY: RADIATION DOSE DELIVERED: Related Data Home Medications ?Medication ?Instructions ?Recorded ?Confirmed acetaminophen 500 mg capsule 1,000 mg PO TID 08/19/24 10/27/24 apixaban 5 mg tablet (Eliquis) 5 mg PO BID 08/19/24 10/27/24 aspirin 81 mg chewable tablet 81 mg PO DAILY 08/19/24 10/27/24 atorvastatin 80 mg tablet (Lipitor) 80 mg PO QHS 08/19/24 10/27/24 buspirone 5 mg tablet 5 mg PO BID 08/19/24 10/27/24 cyanocobalamin (vitamin B-12) 1,000 mcg PO DAILY 08/19/24 10/27/24 1,000 mcg tablet (Vitamin B-12) fluoxetine 20 mg capsule 80 mg PO DAILY 08/19/24 10/27/24 insulin aspart U-100 100 unit/mL 1 sliding scale dose subcut TID 08/19/24 08/31/24 subcutaneous solution (Novolog U-100 Insulin aspart) lactulose 10 gram/15 mL oral 15 ml PO DAILY 08/19/24 10/27/24 solution melatonin 3 mg tablet 3 mg PO QHS 08/19/24 10/27/24 metoprolol succinate 25 mg 25 mg PO DAILY 08/19/24 10/27/24 tablet,extended release 24 hr midodrine 5 mg tablet 5 mg PO ONCE 08/19/24 10/27/24 mupirocin 2 % topical ointment 1 applic topical BID 08/19/24 10/27/24 ondansetron 4 mg disintegrating 4 mg PO DAILY 08/19/24 10/27/24 tablet pantoprazole 40 mg tablet,delayed 40 mg PO DAILY 08/19/24 10/27/24 release (Protonix) polyethylene glycol 3350 17 17 g PO BID 08/19/24 10/27/24 gram/dose oral powder (Miralax) sevelamer carbonate 800 mg tablet 1,600 mg PO TID 08/19/24 10/27/24 trazodone 50 mg tablet 25 mg PO DAILY 08/19/24 10/27/24 Lactobacillus acidophilus 1 tab PO DAILY 10/27/24 10/27/24 (Acidophilus chewable tablet) clindamycin HCl 300 mg capsule 300 mg PO Q6H #28 caps 10/27/24 (Cleocin HCl) sennosides 8.6 mg-docusate sodium 1 tab-cap PO BID 10/27/24 10/27/24 50 mg tablet (Senna Plus) Previous Rx's ?Medication ?Instructions ?Recorded clindamycin HCl 300 mg capsule 300 mg PO Q6H #28 caps 10/27/24 (Cleocin HCl) Allergies Allergy/AdvReac Type Severity Reaction Status Date / Time cefazolin Allergy Unknown Unknown Verified 08/19/24 14:59 ceftriaxone Allergy Unknown Unknown Verified 08/19/24 14:59 codeine Allergy Unknown Unknown Verified 08/19/24 14:59 Fish Containing Products Allergy Unknown Unknown Verified 08/19/24 14:59 gabapentin Allergy Unknown Unknown Verified 08/19/24 14:59 piperacillin (From Zosyn) Allergy Unknown Unknown Verified 08/19/24 14:59 tazobactam (From Zosyn) Allergy Unknown Unknown Verified 08/19/24 14:59 General Stated Complaint: Cellulitis SELENA: 3 Course Vital Signs Vital signs: Vital Signs Temperature 36.4 C L 10/27/24 14:13 Pulse 68 10/27/24 14:13 Respiratory Rate 16 10/27/24 14:13 Blood Pressure 93/66 L 10/27/24 14:13 Pulse Oximetry 97 10/27/24 14:13 Temperature 36.4 C L 10/27/24 14:13 Temperature Source Oral 10/27/24 14:13 Pulse 68 10/27/24 14:13 Respiratory Rate 16 10/27/24 14:13 Blood Pressure 93/66 L 10/27/24 14:13 Blood Pressure Position Supine 10/27/24 14:13 Pulse Oximetry 97 10/27/24 14:13 Oxygen Delivery Method Room Air 10/27/24 14:13 Oxygen Flow Rate 0 10/27/24 14:13 Pain Level 7 10/27/24 14:13 Procedure Abscess Drainage Date of Procedure: 10/27/24 Time of Procedure: 16:36 Provider that performed the procedure: Krzysztof Fernandez Standard Time Out Performed: Yes Patient Consented: Verbally Location of Exam: Lower extremity/right Complications: None Procedure Description Note: Hematoma was anesthetized with ChloraPrep, and sterile drapes were applied. A 3 cm incision was made across the patient's hematoma through the overlying ulceration. Approximately 50 cc of blood and clot was evacuated from the hematoma. Incision site was then irrigated with 2 L of normal saline. Incision site was then loosely sutured together using 4-0 Ethilon with 1 horizontal mattress surture. PFSH All Active Problems (Updated 10/27/24 @ 16:39 by Krzysztof Fernandez MD) Acute hyperkalemia (Acute) Hematoma (Acute) Hx of left BKA (Acute) Class III morbid obesity with body mass index (BMI) of 40.0 to 49.9 (Acute) Type 2 diabetes mellitus (Acute) End stage renal failure on dialysis (Acute) Metabolic encephalopathy (Acute) Bacteremia (Acute) Depression (Chronic) A-fib (Chronic) Hypertension (Chronic) Endocrine cancer (Acute) with an IUD IUD check up (Acute) Social History Smoking/Tobacco Use Status: Never Smoking risk assessment performed?: Yes Alcohol Intake: never Substance use type: does not use Housing: assisted living facility POCUS Exam (ED) Limited Soft Tissue Exam PROVIDER THAT PERFORMED THE STUDY: Krzysztof Fernandez
[2024-10-27 14:30] VITALS: BP 93/66; PULSE 68; RESP 16; TEMP 36.4; O2SAT 97
[2024-10-27 15:16] LABS: Abs Immature Grans 0.02 10^3/uL (0.0-0.06); HCT 36.0 % (36.0-46.0); HGB 10.4 g/dL (11.2-15.7); Immature Grans % 0.3 %; MCH 28.5 pg (27.0-33.0); MCHC 28.9 % (32.0-36.0); MCV 99 fL (80-95); MPV 12.1 fL (8.0-11.0); Platelet Count 109 10^3/uL (130-400); RBC 3.65 10^6/uL (3.93-5.22); RDW 15.9 % (11.7-14.6); RDW-SD 58.6 fL; WBC 6.01 10^3/uL (4.4-10.8)
[2024-10-27 15:22] LABS: INR 1.0 (0.9-1.1); PTT Activated 28.4 sec (20.6-30.2); Prothrombin Time 10.4 sec (9.1-11.1)
[2024-10-27 15:28] LABS: ALT 17 U/L (14-59); AST 16 U/L (15-37); Albumin 2.5 g/dL (3.4-5.0); Alkaline Phosphatase 188 U/L (46-116); Anion Gap 0.5 mmol/L (3-11); BUN 17 mg/dL (7-18); Bilirubin, Total 0.2 mg/dL (0.2-1.0); CO2 35.5 mmol/L (21.0-32.0); Calcium 8.8 mg/dL (8.5-10.1); Chloride 104 mmol/L (98-107); Estimated GFR 16.73 (mL/min/1.73m2); Glucose 169 mg/dL (74-106); Potassium 5.3 mmol/L (3.5-5.1); Sodium 140 mmol/L (136-145); Total Protein 6.3 g/dL (6.4-8.2)
[2024-10-27 15:34] LABS: Creatine Kinase < 7 U/L (26-192)
[2024-10-27] MEDS: ACETAMINOPHEN 1,000 MG/100 ML BAG 400 MG IVPB (15:36)
[2024-10-27] MEDS: CLINDAMYCIN 900 MG/50 ML BAG 50 MG IVPB (16:30)
[2024-10-27] MEDS: Sodium Zirconium Cyclosilicate 10 GM PKT PO (16:31)
[2024-10-27] MEDS: Lidocaine 1% Pres-Free W/EPI 1/200,000 30 ML VIAL IJ (16:57)
== END 2024-10-27 17:14 | disposition skilled nursing facility (03) ==
PROVIDERS: Emergency Provider General Practice; PCP Internal Medicine
DX: E87.5 Hyperkalemia (principal); S81.801A Unspecified open wound, right lower leg, initial encounter; X58.XXXA Exposure to other specified factors, initial encounter; S80.11XA Contusion of right lower leg, initial encounter
CPT/HCPCS: 10140; 80053; 82550; 87428; 96365; 96368; 99284; 73590; 83605; 85025; 85610; 85730; J0131; J0737; J2004

== ENCOUNTER 2024-12-19 17:46 | Outpatient (REF) | payer MEDICARE, MEDICAID, SELFPAY ==
[2024-12-19 19:04] LABS: Hemoglobin A1C 5.5 % (<5.7)
[2024-12-19 19:24] LABS: Calculated LDL 33 mg/dL (<100); Cholesterol 101 mg/dL (<200); HDL Cholesterol 48 mg/dL (>or=50); TSH (W/Ref FT4) 0.67 uIU/mL (0.36-3.74); Triglyceride 102 mg/dL (<150)
[2024-12-19 19:25] LABS: Vitamin B12 > 2000 pg/mL (193-986)
== END 2024-12-19 17:47 | disposition home or self-care (01) ==
LOC: LBN 17:46
PROVIDERS: PCP Internal Medicine; Visit Provider Nurse Practitioner Gerontology
DX: R53.82 Chronic fatigue, unspecified (principal); R73.03 Prediabetes; D51.9 Vitamin B12 deficiency anemia, unspecified; Z13.220 Encounter for screening for lipoid disorders
CPT/HCPCS: 80061; 82607; 83036; 84443

== ENCOUNTER 2024-12-20 19:31 | Outpatient (REF) | payer MEDICARE, MEDICAID, SELFPAY ==
[2024-12-20 15:53] LABS: Glucose Negative (Negative)
[2024-12-20 16:13] LABS: WBC >50 HPF (0-5)
== END 2024-12-20 19:32 | disposition home or self-care (01) ==
LOC: LBN 19:31
PROVIDERS: PCP Internal Medicine; Visit Provider Nurse Practitioner Gerontology
DX: N39.0 Urinary tract infection, site not specified (principal)
CPT/HCPCS: 81003; 81015; 87086

== ENCOUNTER → 2025-01-24 01:40 | Outpatient (CLI) | payer MEDICARE, MEDICAID, SELFPAY ==
--- NOTE | 2025-01-24 | DI.CT_ITS ---
Exam(s) CT HEAD WO EXAM: CT HEAD WO CLINICAL HISTORY: VISION CHANGES, VISUAL HALLUCIATION, H53, R44.1. TECHNIQUE: Imaging Protocol: Axial computed tomography images with coronal and sagittal reformatted images were created and reviewed COMPARISON: No exams were available for comparison FINDINGS: Ventricles and Extra axial spaces: Normal in size and morphology for the patient's age. Hemorrhage: None. Cerebral parenchyma: There are areas of decreased attenuation in the white matter most suggestive of chronic microvascular ischemic disease. No acute territorial infarct is identified at this time. Midline shift: None. Brainstem/Cerebellum: Normal. Calvarium: Normal. Visualized Paranasal sinuses/Mastoids: Clear. Soft Tissues: Unremarkable. IMPRESSION: 1. No acute intracranial process. 2. Findings suggestive of chronic microvascular ischemic disease. RADIATION DOSE DELIVERED: 801.96mGy.cm Total DLP DATA REPOSITORY: All CT scans at this facility are submitted to the National Radiology Data Registry (NRDR) Dose Index Registry (DIR) with the [employer] ([employer]). RADIATION OPTIMIZATION: All CT scans at this facility use at least one of these dose optimization techniques: automated exposure control; mA and/or kV adjustment per patient size (includes targeted exams where dose is matched to clinical indication); or iterative reconstruction.
== END ==
LOC: DI 01:40
PROVIDERS: PCP Internal Medicine; Visit Provider Nurse Practitioner Gerontology
DX: R44.1 Visual hallucinations (principal)
CPT/HCPCS: 70450

== ENCOUNTER 2025-02-01 16:41 | Emergency (ER) | payer MEDICARE, MEDICAID, SELFPAY ==
[2025-02-01] VITALS (66 sets, daily range): BP systolic 64–140; BP diastolic 23–112; PULSE 58–84; RESP 10–26; TEMP 36.8; O2SAT 94–100
--- NOTE | 2025-02-01 00:07 | DI.RAD_ITS ---
Exam(s) XR PORTABLE CHEST AP EXAM: XR PORTABLE CHEST AP CLINICAL HISTORY: sepsis. TECHNIQUE: 2D digital imaging was performed. COMPARISON: CT CT ABDOMEN PELVIS WO from 08/19/2024 FINDINGS: Single AP portable view. Left supra clavi in double lumen catheter noted with its distal tip in the lower SVC at the SVC-RA junction. Heart size is upper normal. The mediastinum is not widened. There is mild-moderate elevation the right hemidiaphragm. This was evident on CT scan of 08/19/2024. Lungs are clear. No infiltrates nor obvious pleural effusions. No pulmonary edema. IMPRESSION: No acute pulmonary findings on this single AP portable view of the chest. Dialysis catheter at the SVC-RA junction. DATA REPOSITORY: RADIATION DOSE DELIVERED:
[2025-02-01 16:47] LABS: Glucose Negative (Negative)
[2025-02-01 16:49] LABS: C & S Indicated? Yes; WBC >50 HPF (0-5)
--- NOTE | 2025-02-01 17:02 | W.ED.GENAD ---
Discharge Plan Disposition Patient Disposition: Transfer-Acute Inpatient Care Specific Acute Inpt Facility: [facility] Condition: Poor Discharge Details Clinical Impression: Volume depletion, Sepsis, Acute UTI Primary Care Provider: Wilber Miles ED Provider: Thi Peterson Home Meds and New Rx's Prescriptions: No Action lactulose 10 gram/15 mL solution 15 ml PO DAILY ondansetron 4 mg tablet,disintegrating 4 mg PO DAILY Rx Instructions: Give 1 tab prior to dialysis on Thu/ Thu/ Thu mupirocin 2 % ointment 1 applic topical BID fluoxetine 20 mg capsule 80 mg PO DAILY metoprolol succinate 25 mg tablet extended release 24 hr 25 mg PO DAILY insulin aspart U-100 [Novolog U-100 Insulin aspart] 100 unit/mL solution 1 sliding scale dose subcut TID midodrine 5 mg tablet 5 mg PO ONCE Rx Instructions: administer 15-30 minutes before start of dialysis on Thu/ Thu/ Thu cyanocobalamin (vitamin B-12) [Vitamin B-12] 1,000 mcg tablet 1,000 mcg PO DAILY buspirone 5 mg tablet 5 mg PO BID pantoprazole [Protonix] 40 mg tablet,delayed release (DR/EC) 40 mg PO DAILY aspirin 81 mg tablet,chewable 81 mg PO DAILY Eliquis 5 mg tablet 5 mg PO BID polyethylene glycol 3350 [Miralax] 17 gram/dose powder 17 g PO BID acetaminophen 500 mg capsule 1,000 mg PO TID trazodone 50 mg tablet 25 mg PO DAILY atorvastatin [Lipitor] 80 mg tablet 80 mg PO QHS sevelamer carbonate 800 mg tablet 1,600 mg PO TID Rx Instructions: must administer with a meal/food melatonin 3 mg tablet 3 mg PO QHS Acidophilus Tablet,Chewable 1 tab PO DAILY sennosides-docusate sodium [Senna Plus] 8.6-50 mg tablet 1 tab-cap PO BID clindamycin HCl [Cleocin HCl] 300 mg capsule 300 mg PO Q6H Qty: 28 0RF HPI General Mode of arrival: EMS. Date/Time Provider Initiated Documentation: 02/01/25 16:56. Limitations to Documentation: altered mental status. Information obtained by: patient, RN/MD, EMS, RN notes reviewed and old records reviewed. History of Present Illness 64 year old F presents to the emergency department with the chief complaint of altered mental status, described as moderate and similar to prior episodes, Patient started experiencing this hour(s) (began after dialysis) and it has been constant. No relieving factors improve symptom(s), Other factors that worsen symptoms (started after dialysis) . Patient notes confusion, fever/chills, loss of appetite, malaise and rash; denies chest pain, cough, nausea/vomiting and shortness of breath. Patient did receive the following treatments prior to arrival, none Related Data Home Medications ?Medication ?Instructions ?Recorded ?Confirmed acetaminophen 500 mg capsule 1,000 mg PO TID 08/19/24 02/01/25 apixaban 5 mg tablet (Eliquis) 5 mg PO BID 08/19/24 10/27/24 aspirin 81 mg chewable tablet 81 mg PO DAILY 08/19/24 02/01/25 atorvastatin 80 mg tablet (Lipitor) 80 mg PO QHS 08/19/24 02/01/25 buspirone 5 mg tablet 5 mg PO BID 08/19/24 02/01/25 cyanocobalamin (vitamin B-12) 1,000 mcg PO DAILY 08/19/24 02/01/25 1,000 mcg tablet (Vitamin B-12) fluoxetine 20 mg capsule 80 mg PO DAILY 08/19/24 02/01/25 insulin aspart U-100 100 unit/mL 1 sliding scale dose subcut TID 08/19/24 08/31/24 subcutaneous solution (Novolog U-100 Insulin aspart) lactulose 10 gram/15 mL oral 15 ml PO DAILY 08/19/24 02/01/25 solution melatonin 3 mg tablet 3 mg PO QHS 08/19/24 02/01/25 metoprolol succinate 25 mg 25 mg PO DAILY 08/19/24 10/27/24 tablet,extended release 24 hr midodrine 5 mg tablet 5 mg PO ONCE 08/19/24 02/01/25 mupirocin 2 % topical ointment 1 applic topical BID 08/19/24 02/01/25 ondansetron 4 mg disintegrating 4 mg PO DAILY 08/19/24 02/01/25 tablet pantoprazole 40 mg tablet,delayed 40 mg PO DAILY 08/19/24 10/27/24 release (Protonix) polyethylene glycol 3350 17 17 g PO BID 08/19/24 10/27/24 gram/dose oral powder (Miralax) sevelamer carbonate 800 mg tablet 1,600 mg PO TID 08/19/24 02/01/25 trazodone 50 mg tablet 25 mg PO DAILY 08/19/24 10/27/24 Lactobacillus acidophilus 1 tab PO DAILY 10/27/24 02/01/25 (Acidophilus chewable tablet) clindamycin HCl 300 mg capsule 300 mg PO Q6H #28 caps 10/27/24 (Cleocin HCl) sennosides 8.6 mg-docusate sodium 1 tab-cap PO BID 10/27/24 10/27/24 50 mg tablet (Senna Plus) Previous Rx's ?Medication ?Instructions ?Recorded clindamycin HCl 300 mg capsule 300 mg PO Q6H #28 caps 10/27/24 (Cleocin HCl) Allergies Allergy/AdvReac Type Severity Reaction Status Date / Time cefazolin Allergy Unknown Unknown Verified 02/01/25 18:53 ceftriaxone Allergy Unknown Unknown Verified 02/01/25 18:53 codeine Allergy Unknown Unknown Verified 02/01/25 18:53 Fish Containing Products Allergy Unknown Unknown Verified 02/01/25 18:53 gabapentin Allergy Unknown Unknown Verified 02/01/25 18:53 piperacillin (From Zosyn) Allergy Unknown Unknown Verified 02/01/25 18:53 tazobactam (From Zosyn) Allergy Unknown Unknown Verified 02/01/25 18:53 General Stated Complaint: AMS/LOC SELENA: 3 Review of Systems Narrative: Very limited due to patients mental status Exam Const General: uncooperative, uncomfortable, anxious, frail appearing and ill appearing acutely and chronically Nutritional Appearance: well nourished and obese Orientation: alert and awake [facility] Mouth: mucous membranes dry (appears dry) Chest Chest: normal inspection of the chest, normal palpation of entire chest wall and no crepitus Resp Effort & Inspection: normal respiratory effort, able to speak in complete sentences and no respiratory distress Auscultation: clear to auscultation bilaterally, no rales, no rhonchi and no wheezes Cardio Rate: regular rate Rhythm: regular rhythm Heart Sounds: S1 normal and S2 normal GI Inspection: normal to inspection and no edema Palpation: soft, no guarding, not rigid and nontender Rectal Exam - female: heme positive stool (soft, red stool) General: other (thick purulent discharge in introitus and around urethra) Back/Spine/Pelvis Back: no CVA tenderness Skin General skin exam: other (areas of break down and fungal irritation in groin) Neuro General: patient alert and patient awake Speech: speech normal Extrem General: other (chronic appearing wounds RLE, BKA LLE) Course Vital Signs Vital signs: Vital Signs Temperature 36.8 C 02/01/25 16:09 Pulse 80 02/01/25 16:09 Respiratory Rate 18 02/01/25 16:09 Blood Pressure 140/112 H 02/01/25 16:09 Pulse Oximetry 94 02/01/25 16:09 Temperature 36.8 C 02/01/25 16:09 Temperature Source Oral 02/01/25 16:09 Pulse 80 02/01/25 16:09 Respiratory Rate 18 02/01/25 16:09 Blood Pressure 140/112 H 02/01/25 16:09 Pulse Oximetry 94 02/01/25 16:09 Pain Level 10 02/01/25 16:09 Lab/Test Results Lab/Test Results: 02/01/25 16:34 Urine - Reflex from Ua Urine Culture - Pending 02/01/25 16:32 Blood Blood Culture - Pending 02/01/25 16:32 Blood Blood Culture - Pending Laboratory Tests Range/Units 02/01/25 16:34 Urine Color (Yellow) Yellow Urine Clarity (Clear) Cloudy Urine pH (5-8) 5.5 Ur Specific [place] (1.005-1.025) >= 1.030 H Urine Protein (Neg-Trace) mg/dL >=300 H Urine Ketones (Negative) mg/dL 15 H Urine Blood (Negative) Large H Urine Nitrite (Negative) Negative Urine Bilirubin (Negative) Negative Urine Urobilinogen (Up to 0.2) mg/dL 0.2 Ur Leukocyte Esterase (Negative) Moderate H Urine RBC Not Applicable Urine WBC (0-5) HPF >50 H Ur Epithelial Cells Not Applicable Urine Crystals Not Applicable Urine Bacteria Not Applicable Urine Mucus Not Applicable Ur Culture Indicated? Yes Urine Glucose (Negative) mg/dL Negative Medical Decision Making Patient is a pleasant 64 year old female with PMH of CKD for which she is on dialysis, vascular dementia with mood disturbance, peripheral vascular disease, hypertension of hemodialysis, anxiety, chronic pain, anemia of chronic disease, obesity, hypertension, below the knee left leg amputation, GERD, depression, hyperlipidemia, atrial fibrillation, type 2 diabetes, presenting today with chief complaint of altered mental status after dialysis. Patient is dialyzed Thursday, received dialysis and remained altered after completion. Per dialysis, patient can have some continued altered mental status but typically it clears quicker than it has today. Patient was also noted to be febrile, afebrile here. Patient also has noted bright red blood in her Stool today. States that she has had this intermittently historically. She is declined having any type of colonoscopy or further evaluation for this. Patient denies any shortness of breath or chest pain. Patient does make urine, states that she typically urinates about twice per day. Patient states that she was also having some lightheadedness but did not fall, no syncopal episodes. Patient's review of systems is difficult to obtain as she is confused and her story does change frequently. However, does sound like she was not feeling well this morning prior to beginning dialysis. Patient resides at the [facility]. Is wheelchair-bound. On exam, patient appears acute and chronically ill. She does appear uncomfortable, has significant discomfort with movement particularly of her lower extremities. She also has skin breakdown near her rectum as well as irritation in the groin. Patient does have some thick purulent discharge near the vaginal introitus as well as the urethra. Will obtain urinalysis. Abdomen is benign. Lungs are clear. Normal cardiac exam. Patient is hemodynamically stable. Her altered mental status as well as the abnormalities noted on clinical exam have a concern for UTI leading to the patient's confusion. This also could be associated with issue with her dialysis although it sounds like they did a wet and dry weight. She not having any chest pain or shortness of breath, no significant hemodynamic instability to suggest ACS. Straight cath was performed and patient has thick purulent green urine more consistent with pus than with urine. This been sent to the lab. With this finding, concern for UTI leading to her altered mental status. Shortly after patient arrived, she began to have decreasing blood pressure with systolic in the 70s to 80s. She has struggled with this historically based on chart review. Will give a small bolus of fluids and continue to reassess. Will be careful in our fluid management given the patient's recent dialysis and attempting to not fluid overload her. Will also begin empirically on antibiotics. BP lower with map of 41, will give small bolus of fluids, 250cc. Labs show infectious process, exam and labs support UTI. Started on abx. Patient is initial IV, which is a 20-gauge peripheral IV, is not appropriate given her hypotension. Therefore, patient I discussed central line. Patient declines this intervention. This will need to be in the neck given the skin findings in the groin and patient refuses to have this completed. Patient is blood pressure continues to drop with systolic in the 70s, diastolic in the 40s. Concern for distributive shock, likely associated with urosepsis versus volume depletion associated with her recent dialysis treatment. Bedside ultrasound was completed by myself and Dr. Salas showing very flat IVC suggesting the need for increased fluid boluses to manage the patient's persistent hypotension. Patient received 2 boluses of LR both of which were 250 cc as well as IV vancomycin. During the second LR bolus, patient lost her peripheral IV. Attempted to gain access via ultrasound-guided IV. Attempts were made by multiple nursing staff, myself, Dr. Lucas, Dr. Salas all of which were unsuccessful and this included access via EJ and IJ. At this point, unclear if the patient's hypotension is just associated with excess fluid removal during the time of dialysis versus urosepsis leading to distributive shock. With the patient requiring dialysis, not a candidate for admission here, will consult with [facility] regarding higher level of care. will attempt to get bed at [facility]. Spoke with critical care at [facility] and they are unable to accept at this time. Spoke with critical care with [facility], discussed fluid vs. pressors. They recommend adding further abx, trying the fluid boluses prior to starting any pressors. Her BP is temporarily improved with and SBP of 127 but concerned about this being temporary. Dr. Pederson is the accepting. Just prior to transfer, we were able to get a 20G in the left arm, she is receiving her Meropenum, SBP now 120. PFSH All Active Problems (Updated 02/02/25 @ 00:35 by GAVIN Henry) Acute UTI (Acute) Sepsis (Acute) Volume depletion (Acute) Hx of left BKA (Acute) Class III morbid obesity with body mass index (BMI) of 40.0 to 49.9 (Acute) Type 2 diabetes mellitus (Acute) End stage renal failure on dialysis (Acute) Metabolic encephalopathy (Acute) Bacteremia (Acute) Depression (Chronic) A-fib (Chronic) Hypertension (Chronic) Endocrine cancer (Acute) with an IUD IUD check up (Acute) Social History Smoking/Tobacco Use Status: Never Smoking risk assessment performed?: Yes Alcohol Intake: never Substance use type: does not use Housing: assisted living facility
[2025-02-01 18:12] LABS: Abs Immature Grans 0.05 10^3/uL (0.0-0.06); HCT 30.3 % (36.0-46.0); HGB 9.2 g/dL (11.2-15.7); Immature Grans % 0.5 %; MCH 29.9 pg (27.0-33.0); MCHC 30.4 % (32.0-36.0); MCV 98 fL (80-95); MPV 11.2 fL (8.0-11.0); Platelet Count 146 10^3/uL (130-400); RBC 3.08 10^6/uL (3.93-5.22); RDW 15.5 % (11.7-14.6); RDW-SD 55.4 fL; WBC 9.54 10^3/uL (4.4-10.8)
--- NOTE | 2025-02-01 18:12 | NUR.NOTE ---
Patient was brought in by EMS with history of having dialysis today then after reaching the her residence they observed alteration in her mental state. patient was noted with period of confusion while at the hospital and also resistance of carel. Patient noted with sacral area stage 2 ulcers, and noticeable bloody stools. excoriated perinea also observed. Patient was bladder scanned for over 250mls of urine, and verbal order for straight catheter was initiated. 200Mls purulent discharged was emptied from the patient bladder. Provider was present and aware of this.
[2025-02-01 18:32] LABS: ALT 10 U/L (10-49); AST 14 U/L (<34); Albumin 3.3 g/dL (3.2-5.0); Alkaline Phosphatase 176 U/L (46-116); Anion Gap 9.6 mmol/L (3-11); BUN 10 mg/dL (9-23); Bilirubin, Total 0.30 mg/dL (0.2-1.2); CO2 30.4 mmol/L (20.0-31.0); Calcium 8.7 mg/dL (8.3-10.6); Chloride 100 mmol/L (98-107); Glucose 138 mg/dL (74-106); Potassium 3.5 mmol/L (3.5-5.1); Sodium 140 mmol/L (136-145); Total Protein 6.5 g/dL (5.7-8.2)
[2025-02-01 18:39] LABS: Procalcitonin 0.45 ng/mL
[2025-02-01 18:43] LABS: INR 1.0 (0.9-1.1); PTT Activated 27.1 sec (20.6-30.2); Prothrombin Time 10.3 sec (9.1-11.1)
[2025-02-01 18:47] LABS: MRSA PCR Negative (Negative)
[2025-02-01] MEDS: Lactated Ringers 250 ML IV (19:01)
[2025-02-01] MEDS: VANCOMYCIN/WATER (PEG) 2 GM/400 ML BAG IVPB (19:40)
[2025-02-01] MEDS: Normal Saline 500 ML IV (20:08)
[2025-02-02] VITALS: PULSE 80; RESP 27
[2025-02-02 00:10] VITALS: PULSE 71; RESP 15
[2025-02-02 00:20] VITALS: PULSE 73; RESP 20
--- NOTE | 2025-02-02 00:31 | DI.VRAD_ITS ---
PROCEDURE INFORMATION: Exam: XR Chest Exam date and time: 02/02/2025 12:01 AM Age: 64 years old Clinical indication: Other: Sepsis TECHNIQUE: Imaging protocol: Radiologic exam of the chest. Views: 1 view. COMPARISON: CT ABDOMEN PELVIS WO 08/19/2024 5:21 PM FINDINGS: Tubes, catheters and devices: Central venous catheter tip is at the distal SVC. Lungs: Lungs are clear. Pleural spaces: No pneumothorax or pleural effusion. Heart/Mediastinum: Unremarkable. No cardiomegaly. Diaphragm: Mild to moderate elevation of the right hemidiaphragm. Bones/joints: Unremarkable. IMPRESSION: Mild to moderate elevation of the right hemidiaphragm. Dictated and Authenticated by: Daryn Dillard MD. Orderin Kristen Ness MD
--- NOTE | 2025-02-05 15:51 | NUR.NOTE ---
Faxed to [facility] the urine culture result. . Dr. Torres aware. Nursing Note:
--- NOTE | 2025-02-08 09:30 | NUR.NOTE ---
Hallie Norris RN from the [facility] called asking if the patient's wound vac cord was here. It is missing. I looked throughout the dept and did not find it. I called and left a message on Hallie's phone at the [facility]. Nursing Note:
== END 2025-02-02 00:45 | disposition short-term general hospital (02) ==
PROVIDERS: Emergency Provider Physician Assistant; PCP Internal Medicine
DX: N39.0 Urinary tract infection, site not specified (principal); A41.9 Sepsis, unspecified organism; R41.82 Altered mental status, unspecified; E86.9 Volume depletion, unspecified; N18.6 End stage renal disease; Z99.2 Dependence on renal dialysis
CPT/HCPCS: 36415; 51701; 80053; 84145; 87040; 87077; 87641; 96361; 96365; 99285; 71045; 81003; 81015; 83605; 85025; 85610; 85730; 87086; 87186; J3373